=== PATIENT | male | born 1950 | race African-American/Black ===

== ENCOUNTER 2017-07-17 11:57 | Inpatient (IN) | payer MEDICARE, MEDICAID ==
[~2017-07-17] VITALS: Ht 162.6 cm; Wt 86.6 kg
[~2017-07-17 11:57] MED LIST: ALLO300T2 PO; CALC0.25; CALC500T62; CEPH500C2; CLON0.1T14 PO; DOXA4TAB2 PO; LEVO500T2 PO; LOT10 PO; METF500T4 PO; METO50TA95 PO; OMEP20CA4; POTA8TAB4; TRU10 BOTHEYE; VIC; XALAO
[2017-07-17] MEDS ORDERED: DEXTROSE 50% WATER 50ML SYRINGE IV ONE ×2 (12:10→12:30)
[2017-07-17 12:33] LABS: BASOPHILS % 0.3 % (0.0-2.0); EOSINOPHILS % 0.6 % (0.0-5.0); HEMATOCRIT. 32.9 % (42.0-52.0); HEMOGLOBIN. 11.5 g/dL (14.0-18.0); LYMPHOCYTES % 14.7 % (20.0-50.0); MEAN CORPUSCULAR HEMOGLOBIN 31.4 pg (28.0-32.0); MEAN CORPUSCULAR VOLUME 89.6 fL (80.0-94.0); MEAN PLATELET VOLUME 7.9 fl (7.4-10.4); MONOCYTES % 13.1 % (2.0-8.0); NEUTROPHILS % 71.3 % (40.0-76.0); PLATELET 189 x1000/uL (130-400); RED BLOOD CELL COUNT 3.67 mill/uL (4.7-6.1); RED CELL DISTRIBUTION WIDTH 13.4 % (11.6-14.6)
[2017-07-17 12:34] LABS: CHLORIDE 95 mEq/L (98-107)
[2017-07-17 12:37] LABS: PROTHROMBIN TIME 10.9 sec (9.4-11.6)
[2017-07-17 12:42] LABS: CARBON DIOXIDE 29 mEq/L (21-32)
[2017-07-17] MEDS ORDERED: SODIUM CHLORIDE 0.9% 1,000 ML IV ONE (13:30)
[2017-07-17 14:25] LABS: CLARITY URINE CLEAR (CLEAR); COLOR URINE YELLOW (YELLOW); GLUCOSE URINE NEGATIVE (NEGATIVE); KETONES URINE NEGATIVE (NEGATIVE); LEUKOCYTE ESTERASE URINE NEGATIVE (NEGATIVE); NITRITE URINE NEGATIVE (NEGATIVE); OCCULT BLOOD URINE NEGATIVE (NEGATIVE); PROTEIN URINE NEGATIVE (NEGATIVE); SPECIFIC GRAVITY URINE 1.011 (1.005-1.030); UROBILINOGEN URINE 0.2 E.U./dL (0.2-1.0)
[2017-07-17 17:54] VITALS: BP 140/70
[2017-07-17] MEDS ORDERED: ACETAMINOPHEN 325MG TABLET PO PRN (18:45)
[2017-07-17] MEDS ORDERED: ONDANSETRON HCL 4MG/2ML VIAL IV PRN (18:45)
[2017-07-17] MEDS ORDERED: DEXTROSE 50% WATER 50ML SYRINGE IV PRN (19:00)
[2017-07-17 20:00] VITALS: BP 123/67
[2017-07-17] MEDS: BLOOD SUGAR DIAGNOSTIC STRIP TEST SCH (20:22)
[2017-07-17] MEDS: INSULIN LISPRO 100 UNITS/ML SUBCUT SCH (20:23)
[2017-07-17] MEDS: ENOXAPARIN 30MG/0.3ML SYR SUBCUT SCH (20:46)
[2017-07-17] MEDS ORDERED: BLOOD SUGAR DIAGNOSTIC STRIP TEST SCH (21:00)
[2017-07-18] VITALS (8 sets, daily range): BP systolic 95–151; BP diastolic 49–72
[2017-07-18] MEDS: SODIUM CHLORIDE 0.9% 1,000 ML IV SCH ×3 (00:01→18:51)
[2017-07-18] MEDS: OMEPRAZOLE 20MG CAPSULE EXTENDED RELEASE PO SCH (06:25)
[2017-07-18] MEDS: INSULIN LISPRO 100 UNITS/ML SUBCUT SCH ×4 (06:26→20:01)
[2017-07-18] MEDS: CLONIDINE 0.1MG TABLET PO SCH ×3 (06:26→22:16)
[2017-07-18] MEDS: BLOOD SUGAR DIAGNOSTIC STRIP TEST SCH ×4 (06:26→20:01)
[2017-07-18] MEDS: DOXAZOSIN MESYLATE 4MG TABLET PO SCH (08:33)
[2017-07-18] MEDS: METOPROLOL TARTRATE 50MG TABLET PO SCH (08:33)
[2017-07-18] MEDS: ALLOPURINOL 300 MG TABLET PO SCH ×2 (08:34→16:36)
[2017-07-18] MEDS: DORZOLAMIDE 2% OPHTH 10 ML BOTTLE BOTHEYE SCH (08:34)
[2017-07-18] MEDS: CALCITRIOL 0.25MCG CAPSULE PO SCH (08:34)
[2017-07-18 11:40] LABS: AMMONIA 42 uMol/L (<32)
[2017-07-18 12:01] LABS: ETHANOL BLOOD < 10 mg/dL; T4 FREE 1.04 ng/dL (0.76-1.46)
[2017-07-18 14:16] LABS: VITAMIN B12 SERUM 565 pg/mL (211-911)
[2017-07-18 15:42] LABS: FOLIC ACID (FOLATE) SERUM > 20.00 ng/mL (>5.38)
[2017-07-18 20:18] LABS: *AMPHETAMINES SCREEN URINE NEGATIVE (NEGATIVE); *BARBITURATES SCREEN URINE NEGATIVE (NEGATIVE); *BENZODIAZEPINES SCREEN URINE NEGATIVE (NEGATIVE); *COCAINE SCREEN URINE NEGATIVE (NEGATIVE); CANNABINOID URINE SCREEN NEGATIVE (NEGATIVE); METHADONE URINE SCREEN NEGATIVE (NEGATIVE); OPIATES URINE SCREEN PRESUMTIVE POSITIVE (NEGATIVE); PHENCYCLIDINE URINE SCREEN NEGATIVE (NEGATIVE)
[2017-07-18] MEDS: ENOXAPARIN 30MG/0.3ML SYR SUBCUT SCH (20:53)
[2017-07-18] MEDS ORDERED: LATANOPROST 0.005% OPHTH DROPS 2.5ML BOTHEYE SCH (21:00)
[2017-07-19] VITALS: BP 110/59
[2017-07-19] MEDS: SODIUM CHLORIDE 0.9% 1,000 ML IV SCH (03:15)
[2017-07-19 04:00] VITALS: BP 144/59
[2017-07-19 06:21] LABS: BASOPHILS % 0.5 % (0.0-2.0); HEMATOCRIT. 25.4 % (42.0-52.0); LYMPHOCYTES % 24.7 % (20.0-50.0); MEAN CORPUSCULAR HEMOGLOBIN 32.1 pg (28.0-32.0); MEAN CORPUSCULAR VOLUME 90.4 fL (80.0-94.0); MEAN PLATELET VOLUME 7.6 fl (7.4-10.4); MONOCYTES % 13.9 % (2.0-8.0); NEUTROPHILS % 57.9 % (40.0-76.0); PLATELET 155 x1000/uL (130-400); RED BLOOD CELL COUNT 2.81 mill/uL (4.7-6.1); RED CELL DISTRIBUTION WIDTH 13.4 % (11.6-14.6)
[2017-07-19 06:23] VITALS: BP 147/77
[2017-07-19] MEDS: OMEPRAZOLE 20MG CAPSULE EXTENDED RELEASE PO SCH (06:25)
[2017-07-19] MEDS: CLONIDINE 0.1MG TABLET PO SCH ×2 (06:25→13:46)
[2017-07-19] MEDS: BLOOD SUGAR DIAGNOSTIC STRIP TEST SCH ×3 (06:25→17:32)
[2017-07-19] MEDS: INSULIN LISPRO 100 UNITS/ML SUBCUT SCH ×2 (06:26→13:48)
[2017-07-19 06:56] LABS: HEPATITIS B SURFACE ANTIGEN NEGATIVE
[2017-07-19] MEDS: CALCITRIOL 0.25MCG CAPSULE PO SCH (08:23)
[2017-07-19] MEDS: ALLOPURINOL 300 MG TABLET PO SCH (08:23)
[2017-07-19] MEDS: DOXAZOSIN MESYLATE 4MG TABLET PO SCH (08:24)
[2017-07-19] MEDS: METOPROLOL TARTRATE 50MG TABLET PO SCH (08:24)
[2017-07-19] MEDS: DORZOLAMIDE 2% OPHTH 10 ML BOTTLE BOTHEYE SCH (08:28)
[2017-07-19 08:46] LABS: PHOSPHORUS 2.4 mg/dL (2.5-4.9)
[2017-07-19 12:00] VITALS: BP 131/64
[2017-07-19] MEDS ORDERED: POTASSIUM-SODIUM PHOSPHATE POWDER PACKET PO SCH (12:00)
[2017-07-19] MEDS ORDERED: MAGNESIUM 2 G PREMIX 50 ML IV NR (13:30)
[2017-07-19 16:21] VITALS: BP 127/61
[2017-07-19] MEDS ORDERED: ENOXAPARIN 40MG/0.4ML SYR SUBCUT SCH (20:00)
[2017-07-20] MEDS ORDERED: ALLOPURINOL 100 MG TABLET PO SCH (09:00)
[2017-07-20 09:06] LABS: A/G RATIO 0.9 (0.7-1.7); ALPHA-1-GLOBULIN 0.2 g/dL (0.0-0.4); ALPHA-2-GLOBULIN 0.6 g/dL (0.4-1.0); BETA GLOBULIN 0.9 g/dL (0.7-1.3); GAMMA GLOBULINS 1.5 g/dL (0.4-1.8); GLOBULIN TOTAL 3.2 g/dL (2.2-3.9); IMMUNOGLOBULIN A 319 mg/dL (61-437); IMMUNOGLOBULIN G 1475 mg/dL (700-1600); IMMUNOGLOBULIN M 45 mg/dL (20-172); M-SPIKE Not Observed g/dL (Not Observed); TOTAL PROTEIN SERUM 6.2 g/dL (6.0-8.5)
[2017-08-02 09:35] LABS: *CREATININE RANDOM URINE 67.9 mg/dL (Not Estab.); MICROALBUMIN RANDOM URINE 4.4 ug/mL (Not Estab.)
== END 2017-07-19 18:50 | disposition home or self-care (01) | DRG 682 ==
LOC: ER 12:08 → 8WST 14:26 → ENRESERV 15:15 → CANBEDREQ 17:53
PROVIDERS: ADMIT Internal Medicine; ATTEND Internal Medicine
PROC: 4A00X4Z Measurement of Central Nervous Electrical Activity, External Approach (ICD-10-PCS; principal; 2017-07-19)
DX: N17.9 Acute kidney failure, unspecified (principal); G92 Toxic encephalopathy; E11.649 Type 2 diabetes mellitus with hypoglycemia without coma; E11.22 Type 2 diabetes mellitus with diabetic chronic kidney disease; E87.1 Hypo-osmolality and hyponatremia; I12.9 Hypertensive chronic kidney disease with stage 1 through stage 4 chronic kidney disease, or unspecified chronic kidney disease; E87.5 Hyperkalemia; M10.9 Gout, unspecified; K43.9 Ventral hernia without obstruction or gangrene; N18.3 Chronic kidney disease, stage 3 (moderate); N40.0 Benign prostatic hyperplasia without lower urinary tract symptoms; T38.3X5A Adverse effect of insulin and oral hypoglycemic [antidiabetic] drugs, initial encounter; D64.9 Anemia, unspecified; E66.9 Obesity, unspecified; H54.61 Unqualified visual loss, right eye, normal vision left eye; Z79.84 Long term (current) use of oral hypoglycemic drugs; Z79.899 Other long term (current) drug therapy; Z79.2 Long term (current) use of antibiotics; Z68.32 Body mass index [BMI] 32.0-32.9, adult
CPT/HCPCS: 36415; 71010; 76700; 80048; 80053; 80061; 80305; 81003; 82043; 82140; 82570; 82607; 82746; 82784; 82962; 83036; 83735; 84100; 84155; 84156; 84165; 84300; 84439; 84443; 84481; 85025; 85610; 86334; 86803; 87340; 93005; 96360; 96361; 99291; C1893; G0482; J1650; J1815; J3475; J7030

== ENCOUNTER 2018-01-30 15:44 | Emergency (ER) | payer MEDICARE, MEDICAID ==
[~2018-01-30] VITALS: Ht 154.9 cm; Wt 83.0 kg
[~2018-01-30 15:44] MED LIST changes: -CEPH500C2; -LEVO500T2 PO; -LOT10 PO; -METF500T4 PO; -VIC
[2018-01-30] MEDS ORDERED: ASPIRIN 81MG TABLET PO ONE (18:30)
[2018-01-30 19:12] LABS: CHLORIDE 108 mEq/L (98-107)
[2018-01-30 19:15] LABS: HEMATOCRIT. 38.5 % (42.0-52.0); HEMOGLOBIN. 13.3 g/dL (14.0-18.0); INR 1.1; MEAN CORPUSCULAR HEMOGLOBIN 31.7 pg (28.0-32.0); MEAN CORPUSCULAR VOLUME 91.4 fL (80.0-94.0); MEAN PLATELET VOLUME 7.8 fl (7.4-10.4); PLATELET 138 x1000/uL (130-400); PROTHROMBIN TIME 11.4 sec (9.4-11.6); RED BLOOD CELL COUNT 4.21 mill/uL (4.7-6.1); RED CELL DISTRIBUTION WIDTH 13.7 % (11.6-14.6)
[2018-01-30 19:16] LABS: ETHANOL BLOOD < 10 mg/dL
[2018-01-30 19:19] LABS: LDL CHOLESTEROL 130 mg/dL (5-100)
[2018-01-30 19:36] LABS: CLARITY URINE CLEAR (CLEAR); COLOR URINE YELLOW (YELLOW); KETONES URINE NEGATIVE (NEGATIVE); LEUKOCYTE ESTERASE URINE NEGATIVE (NEGATIVE); NITRITE URINE NEGATIVE (NEGATIVE); OCCULT BLOOD URINE NEGATIVE (NEGATIVE); PROTEIN URINE 2+ (NEGATIVE)
[2018-01-30 19:44] LABS: *AMPHETAMINES SCREEN URINE NEGATIVE (NEGATIVE); *BARBITURATES SCREEN URINE NEGATIVE (NEGATIVE); *BENZODIAZEPINES SCREEN URINE NEGATIVE (NEGATIVE); *COCAINE SCREEN URINE NEGATIVE (NEGATIVE); METHADONE URINE SCREEN NEGATIVE (NEGATIVE); OPIATES URINE SCREEN NEGATIVE (NEGATIVE)
[2018-01-30 19:45] LABS: CANNABINOID URINE SCREEN NEGATIVE (NEGATIVE); PHENCYCLIDINE URINE SCREEN NEGATIVE (NEGATIVE)
[2018-01-30] MEDS ORDERED: DEXAMETHASONE 10 MG/ML VIAL IV ONE (20:00)
[2018-01-30] MEDS ORDERED: ACYCLOVIR INJ 800 MG in DEXT 5% WATER 100 ML IV ONE ×2 (20:00→23:45)
[2018-01-30 20:03] LABS: PLATELET ESTIMATE NORMAL
[2018-01-30] MEDS ORDERED: GENTAMICIN 0.3% OPTH OINT 3.5GM LEFTEYE ONE (20:15)
[2018-01-31] MEDS ORDERED: CLINDAMYCIN 900 MG in DEXTROSE 5% WATER 50 ML IV ONE (00:15)
[2018-01-31 01:15] VITALS: BP 155/90
== END 2018-01-31 01:39 | disposition home or self-care (01) ==
LOC: ER 17:03
DX: G51.0 Bell's palsy (principal); E11.22 Type 2 diabetes mellitus with diabetic chronic kidney disease; E78.5 Hyperlipidemia, unspecified; I12.9 Hypertensive chronic kidney disease with stage 1 through stage 4 chronic kidney disease, or unspecified chronic kidney disease; N18.9 Chronic kidney disease, unspecified; M10.9 Gout, unspecified; F11.10 Opioid abuse, uncomplicated; Z79.82 Long term (current) use of aspirin; Z86.73 Personal history of transient ischemic attack (TIA), and cerebral infarction without residual deficits
CPT/HCPCS: 36415; 70450; 71045; 80053; 80305; 81003; 83690; 83721; 83880; 84484; 85025; 85610; 93005; 96365; 96366; 96368; 96375; 99285; G0482; J0133; J1100; J3490; J7060